=== PATIENT | male | born 2000 | race African-American/Black ===

== ENCOUNTER 2020-03-10 18:16 | Emergency (ER) | payer SELFPAY ==
[2020-03-10 21:28] VITALS: BP 133/56; PULSE 89; RESP 16; TEMP 36.9; O2SAT 98; BMI 27.1
[2020-03-10 21:52] VITALS: BP 123/71; PULSE 73; RESP 16; TEMP 36.7; O2SAT 99
[2020-03-10 22:02] LABS: MANUAL DIFF FLAG NO
[2020-03-10 22:06] LABS: Basophils Percent Auto 0.5 % (0-2); Eosinophils Absolute Auto 0.1 X10*3/uL (0.0-0.4); Eosinophils Percent Auto 0.8 % (0-4); Hematocrit 44.4 % (42-52); Hemoglobin 14.6 g/dl (14.0-18.0); Imm Gran Abs Auto 0.02 X10*3/uL (0.00-0.03); Imm Gran Pct Auto 0.3 % (0.0-0.4); Lymphocytes Absolute Auto 2.3 X10*3/uL (1.2-4.9); Lymphocytes Percent Auto 29.4 % (20-40); Mean Corpuscular HGB Conc 32.9 g/dl (31.0-36.0); Mean Corpuscular Hemoglobin 29.2 pg (27.0-33.0); Mean Corpuscular Volume 88.8 fL (80-98); Mean Platelet Volume 11.8 fL (9.4-12.4); Monocytes Absolute Auto 0.8 X10*3/uL (0.1-1.2); Monocytes Percent Auto 9.9 % (2-11); Neutrophils Absolute Auto 4.7 X10*3/uL (2.0-8.3); Neutrophils Percent Auto 59.1 % (45-73); Platelet Count 155 X10*3/uL (160-400); Red Cell Distribution Width 12.8 % (11.0-16.0); White Blood Count 7.9 X10*3/uL (4.8-10.8)
--- NOTE | 2020-03-10 22:07 | ED_ITS ---
HPI - Headache General Chief Complaint: Headache Stated Complaint: migraine Time Seen by Provider: 03/10/20 22:07 History of Present Illness HPI Narrative: Patient is a 20-year-old male with a history of migraine headaches in the past for presented today with having migraine headache. The pain is it over the entire head at 1st it was related to some photophobia. There is no fever no chills no cough no congestion or upper respiratory symptoms. There is no focal neurological deficit. Patient claims that while he is waiting in the waiting room for about 3 hours now the symptom has basically resolved. Patient denies having any headache at this time. There is no nausea no vomiting. Patient claims this is very typical for migraines Related Data Previous Rx's Medication Instructions Recorded ibuprofen 400 mg PO Q6H PRN #20 tab 03/10/20 Allergies Allergy/AdvReac Type Severity Reaction Status Date / Time No Known Allergies Allergy Verified 03/10/20 21:32 [No Known Allergies*] Review of Systems Review of Systems: Constitutional: No Weight loss, No Fever, No Chills, No Night Sweats, No Fatigue, No Malaise ENT/Mouth: No Hearing loss, No Ear Pain, No Nasal Congestion, No Sinus Pain, No Hoarseness, No sore throat, No Rhinorrhea, No Swallowing Difficulty Eyes: No Eye Pain, No Swelling, No Redness, No Foreign Body, No Discharge, No Vision Changes Cardiovascular: No Chest Pain, No SOB, No Dyspnea on Exertion, No Orthopnea, No Edema, No Palpitations Respiratory: No Cough, No Sputum, No Wheezing, No Smoke Exposure, No Dyspnea Gastrointestinal: No Nausea, No Vomiting, No Diarrhea, No Constipation, No abdominal Pain, No Hematochezia, No Melena Genitourinary: no irregular bleeding, No Dysuria, No Urinary Frequency, No Hematuria, No Urinary Incontinence, No Urgency, No Flank Pain, No Urinary Flow Changes, No Hesitancy Musculoskeletal: No joint pain, No Myalgias, No Joint Swelling Skin: No Skin Lesions, No rash Neuro: No Weakness, No Numbness, No Paresthesias, No Loss of Consciousness, No Dizziness, No Headache Psych: No Anxiety/Panic, No Depression, No SI/HI/AH/VH, No Social Issues, Heme/Lymph: No Bruising, No Bleeding,No Lymphadenopathy Endocrine: No Polyuria, No Polydipsia, No Temperature Intolerance PMFSH Past Medical History Attestation statement: The following information was validated with the patient. Medical History Migraine Social History Social History Advance Directives: No Physical Exam Vital Signs: Vital Signs: Vital Signs Temp Pulse Resp BP Pulse Ox 03/10/20 21:52 98.1 F 73 16 123/71 99 03/10/20 21:28 98.4 F 89 16 133/56 L 98 Body Mass Index 27.1 Appearance: Alert. Oriented X3. No acute distress. Eyes: Pupils equal, round and reactive to light. ENT: Pharynx normal. Neck: Normal inspection. Neck supple. No lymph nodes noted. No crepitus CVS: Normal heart rate and rhythm. Pulses normal. Normal S1 and S2 Respiratory: No respiratory distress. Breath sounds normal. No Wheezing. No rales Abdomen: Soft and nontender. No rigidity. No distention. good BS x4 Skin: Skin warm and dry. Normal skin color. Normal skin turgor. Extremities: No lower extremity edema. Neurovascular intact to all extremities. No Lacerations. No Rash Neuro: Oriented X 3. No motor deficit. No sensory deficit. Moving all extermities. No slurred speech MDM - Headache MDM Narrative Medical decision making narrative: Patient has a history of migraine headache. While waiting patient's symptom has already resolved. It currently in no distress. Ambulated well in the emergency department. Neuro intact. Will discharge patient home close follow-up on an outpatient basis. Differential Diagnosis Differential diagnosis: Likely migraine, tension headache, subarachnoid hemorrhage and headache Medical Records Attestation: I reviewed the patient's medical records. Lab Data Attestation: I reviewed the patient's lab results. Result diagrams: 03/10/20 21:56 03/10/20 21:56 Labs: Lab Results 03/10/20 Range/Units 21:56 WBC 7.9 (4.8-10.8) X10*3/uL RBC 5.00 (4.60-5.80) X10*6/uL Hgb 14.6 (14.0-18.0) g/dl Hct 44.4 (42-52) % MCV 88.8 (80-98) fL MCH 29.2 (27.0-33.0) pg MCHC 32.9 (31.0-36.0) g/dl RDW 12.8 (11.0-16.0) % Plt Count 155 L (160-400) X10*3/uL MPV 11.8 (9.4-12.4) fL Immature Gran % (Auto) 0.3 (0.0-0.4) % Neut % (Auto) 59.1 (45-73) % Lymph % (Auto) 29.4 (20-40) % Forrest % (Auto) 9.9 (2-11) % Eos % (Auto) 0.8 (0-4) % Baso % (Auto) 0.5 (0-2) % Lymph # (Auto) 2.3 (1.2-4.9) X10*3/uL Forrest # (Auto) 0.8 (0.1-1.2) X10*3/uL Eos # (Auto) 0.1 (0.0-0.4) X10*3/uL Baso # (Auto) 0.0 (0.0-0.2) X10*3/uL Abs Immat Gran (auto) 0.02 (0.00-0.03) X10*3/uL Absolute Neuts (auto) 4.7 (2.0-8.3) X10*3/uL Absolute Nucleated RBC 0.000 (0.0-0.012) X10*3/uL Nucleated RBC % (auto) 0.0 (0.0-0.2) /100WBC Discharge Plan Discharge Clinical Impression: Migraine Patient Disposition: Home, Self-Care Instructions: Migraine Headache (ED) Prescriptions: New ibuprofen 400 mg tablet 400 mg PO Q6H PRN (Reason: pain) Qty: 20 RF: 0 Referrals: Physician,Unknown [Primary Care Provider] - 2 days Stand Alone Forms: Work/School Release
[2020-03-10 22:31] LABS: Anion Gap 11 (12-20); Blood Urea Nitrogen 8 mg/dL (9-16); Calcium 8.8 mg/dL (8.4-10.2); Carbon Dioxide 29 mmol/L (22-29); Chloride 103 mmol/L (96-108); Creatinine Clr Calc Pharmacy 120.9; Estimated Glomerular Filt Rate > 60; Glucose Random 105 mg/dL (60-115); Potassium 3.7 mmol/l (3.3-5.1); Sodium 139 mmol/L (135-145)
== END 2020-03-10 22:31 | disposition home or self-care (01) ==
PROVIDERS: Emergency Provider Emergency Medicine Emergency Medical Services
DX: G43.909 Migraine, unspecified, not intractable, without status migrainosus (principal)
CPT/HCPCS: 36415; 80048; 85025; 99283

== ENCOUNTER 2020-04-15 15:59 | Outpatient (REF) | payer OTHER, SELFPAY | END 2020-04-15 16:00 | disposition home or self-care (01) | LOC: HO.LAB 15:59 | PROVIDERS: Visit Provider Internal Medicine | DX: Z20.828 Contact with and (suspected) exposure to other viral communicable diseases (principal) | CPT/HCPCS: C9803; U0003 ==

== ENCOUNTER 2020-04-15 16:23 | Emergency (ER) | payer OTHER, SELFPAY ==
[2020-04-15 16:48] VITALS: BP 141/76; PULSE 69; RESP 16; TEMP 36.7; O2SAT 99; BMI 27.1
--- NOTE | 2020-04-15 18:23 | ED_ITS ---
HPI - General Adult General Chief complaint: General Medical Stated complaint: STD check Time Seen by Provider: 04/15/20 18:21 Source: patient Mode of arrival: ambulatory Limitations: no limitations History of Present Illness HPI narrative: States he had intercourse with a new partner unprotected last week today he noticed slight discharge from his penis that was ?creamy? and presents seeking testing for STI. States similar history in the past with chlamydia Denies any rash or lesions. No dysuria. No fever chills. No testicular pain. No penile pain. Relieving factors: none Exacerbating factors: none Associated symptoms: denies other symptoms Treatments prior to arrival: none Related Data Previous Rx's Medication Instructions Recorded ibuprofen 400 mg PO Q6H PRN #20 tab 03/10/20 Allergies Allergy/AdvReac Type Severity Reaction Status Date / Time No Known Allergies Allergy Verified 03/10/20 21:32 [No Known Allergies*] Review of Systems Review of Systems: Constitutional: No Weight loss, No Fever, No Chills, No Night Sweats, No Fatigue, No Malaise ENT/Mouth: No Hearing loss, No Ear Pain, No Nasal Congestion, No Sinus Pain, No Hoarseness, No sore throat, No Rhinorrhea, No Swallowing Difficulty Eyes: No Eye Pain, No Swelling, No Redness, No Foreign Body, No Discharge, No Vision Changes Cardiovascular: No Chest Pain, No SOB, No Dyspnea on Exertion, No Orthopnea, No Edema, No Palpitations Respiratory: No Cough, No Sputum, No Wheezing No Dyspnea Gastrointestinal: No Nausea, No Vomiting, No Diarrhea, No Constipation, No abdominal Pain, No Hematochezia, No Melena Genitourinary: No Dysuria, No Urinary Frequency, No Hematuria, No Urinary Incontinence, No Urgency, No Flank Pain, No Urinary Flow Changes, No Hesitancy Musculoskeletal: No joint pain, No Myalgias, No Joint Swelling Skin: No Skin Lesions, No rash Neuro: No Weakness Psych: No Social Issues Heme/Lymph: No Bruising, No Bleeding,No Lymphadenopathy Endocrine: No Polyuria, No Polydipsia, No Temperature Intolerance Yes all other systems are reviewed and are negative [facility] Past Medical History Medical History Migraine Social History Social History Advance Directives: No Advance Directives Information Provided: No Physical Exam Vital Signs: Vital Signs: Last Vital Signs Temp 98.1 F 04/15/20 16:48 Pulse 69 04/15/20 16:48 Resp 16 04/15/20 16:48 BP 141/76 H 04/15/20 16:48 Pulse Ox 99 04/15/20 16:48 Body Mass Index 27.1 Reviewed Const: General: cooperative and healthy appearing; No acute distress or intoxicated appearing Nutritional Appearance: average body habitus Orientation/consciousness: patient oriented x3 HENMT: Head: Yes normal to inspection Ears: hearing grossly normal bilaterally Eyes: General: appearance normal, both eyes and all related structures Visual Justin: normal visual justin by confrontation Chest: Chest palpation & inspection: normal inspection of the chest Resp: Effort & Inspection: normal respiratory effort : General: Yes no CVA tenderness Male General Exam: Yes normal external exam Penis: uncircumcised Meatus: meatus normal Scrotum: scrotum normal Testes: Testes normal and testicular lie normal Back/Spine/Pelvis: Back: no CVA tenderness Skin: General skin exam: no rashes or lesions noted Neuro: General: patient oriented x3 Extrem: General: Yes normal to inspection Course Course Course Narrative: Examined directly after he provided specimen for CT /NG /UA. No significant findings on exam. Will go ahead and empirically treat for CT/NG Will advise for close follow-up at [facility] for full panel testing. Empirically treated with ceftriaxone/azithromycin Discharge Plan Discharge Clinical Impression: Urethritis Patient Disposition: Home, Self-Care Instructions: Nonspecific Urethritis in Men (ED) Additional Instructions: Today you were evaluated for your penile discharge This is likely from an STD Today you were tested and treated for 2 common STDs (chlamydia/ gonorrhea) Please go to the [facility] for full panel STD testing at [facility] Please abstain from any further sexual activity until your symptoms have resolved and you have been medically cleared Return if any concerns or worse symptoms Thank you Prescriptions: No Action ibuprofen 400 mg tablet 400 mg PO Q6H PRN (Reason: pain) Qty: 20 RF: 0 Referrals: ED Physician,Generic [Emergency Provider] - 1 day ([facility] )
[2020-04-15 18:34] LABS: Glucose Urine UA NEG (NEG); Leukocyte Esterase Urine NEG (NEG); Nitrite Urine NEG (NEG); Specific Gravity - Urine 1.025 (1.005-1.025); Urine Blood NEG (NEG); Urine Ketones NEG (NEG); Urine Protein NEG (NEG-TRACE)
[2020-04-15 18:40] LABS: Appearance Urine CLEAR; Color Urine YELLOW
[2020-04-15] MEDS: Azithromycin 500 MG TABLET 1000 MG PO (18:44)
[2020-04-15] MEDS: cefTRIAXone sodium 250 MG, Lidocaine HCl 1 % MPF 0.9 ML IM (18:44)
[2020-04-15 18:48] LABS: RBC Urine 0 /HPF (0); Squamous Epithelial Cell Urine TRACE /LPF; UACC CULT YES; WBC Urine 0-2 /HPF (0-4)
[2020-04-21 18:10] LABS: CT PCR DETECTED (Not Detect.); NG PCR NOT DETECTED (Not Detect.)
== END 2020-04-15 19:24 | disposition home or self-care (01) ==
PROVIDERS: Emergency Provider Emergency Medicine Emergency Medical Services
DX: N34.2 Other urethritis (principal); Z20.2 Contact with and (suspected) exposure to infections with a predominantly sexual mode of transmission
CPT/HCPCS: 81001; 87491; 87591; 96372; 99283; 99284; J0696

== ENCOUNTER 2020-04-19 09:36 | Emergency (ER) | payer OTHER, SELFPAY ==
[2020-04-19 09:45] VITALS: BP 140/72; PULSE 84; RESP 16; TEMP 36.4; O2SAT 96; BMI 27.1
--- NOTE | 2020-04-19 10:10 | ED_ITS ---
HPI - Male Genitourinary General Chief complaint: Urogenital-Male Stated complaint: STD Time Seen by Provider: 04/19/20 10:10 History of Present Illness HPI Narrative: patient complains of penile discharge for 1 day, no dysuria, no testicular pain or swelling no fever, denies any sores Related Data Previous Rx's Medication Instructions Recorded ibuprofen 400 mg PO Q6H PRN #20 tab 03/10/20 Allergies Allergy/AdvReac Type Severity Reaction Status Date / Time No Known Allergies Allergy Verified 03/10/20 21:32 [No Known Allergies*] Review of Systems Review of Systems: positive for penile discharge negative no fever no chills no weakness no dizziness no dysuria no frequency no abdominal pain no back pain no rash no sores Yes all other systems are reviewed and are negative [facility] Past Medical History Attestation statement: The following information was validated with the patient. [facility] Narrative: no relevant medical history, he has had unprotected sexual intercourse Medical History Migraine Social History Social History Advance Directives: No Advance Directives Information Provided: No Physical Exam Vital Signs: Vital Signs: Last Vital Signs Temp 97.5 F 04/19/20 09:45 Pulse 84 04/19/20 09:45 Resp 16 04/19/20 09:45 BP 140/72 H 04/19/20 09:45 Pulse Ox 96 04/19/20 09:45 Body Mass Index 27.1 general appearance comfortable no distress cooperative exam neck is supple respiratory no respiratory distress abdomen is soft nontender, back no CVA tenderness, genital is normal with no discharge at this time no testicular swelling no lesions Extremities full range of motion x4 neuro no focal deficits Course Course Course Narrative: patient is treated with Rocephin and Zithromax for presumed STD Discharge Plan Discharge Clinical Impression: STD (male) Patient Disposition: Home, Self-Care Additional Instructions: you have either gonorrhea or chlamydia and we are testing for them and will call you with the results if positive This is very contagious so no sexual activity until your partners have been treated We recommend a follow-up test to confirm successive treatment so follow with her doctor or [facility] [phone] Prescriptions: No Action ibuprofen 400 mg tablet 400 mg PO Q6H PRN (Reason: pain) Qty: 20 RF: 0 Interventions: ED Discharge Assessment Last Done: 04/19/20 11:17 Discharge Date/Time: 04/19/20 11:18
[2020-04-19] MEDS: cefTRIAXone sodium 250 MG, Lidocaine HCl 1 % MPF 0.9 ML IM (11:12)
[2020-04-19] MEDS: Azithromycin 500 MG TABLET 1000 MG PO (11:12)
== END 2020-04-19 11:18 | disposition home or self-care (01) ==
PROVIDERS: Emergency Provider Emergency Medicine Emergency Medical Services
DX: Z20.2 Contact with and (suspected) exposure to infections with a predominantly sexual mode of transmission (principal); R36.9 Urethral discharge, unspecified
CPT/HCPCS: 96372; 99283; 99284; J0696

== ENCOUNTER 2020-06-03 19:22 | Emergency (ER) | payer OTHER, SELFPAY ==
[2020-06-03 21:17] VITALS: BP 142/71; PULSE 73; RESP 16; TEMP 36.6; O2SAT 98; BMI 27.1
--- NOTE | 2020-06-03 21:50 | ED.GENADULT ---
HPI - General Adult General Chief complaint: General Medical Stated complaint: fever Time Seen by Provider: 06/03/20 21:50 Source: patient Mode of arrival: ambulatory History of Present Illness HPI narrative: This is a 20-year-old male who presents for treatment of STI as his intimate partner was treated earlier today here in the emergency department. Otherwise, he denies having fever or chills or penile discomfort or discharge. Related Data Previous Rx's Medication Instructions Recorded ibuprofen 400 mg PO Q6H PRN #20 tab 03/10/20 Allergies Allergy/AdvReac Type Severity Reaction Status Date / Time No Known Allergies Allergy Verified 03/10/20 21:32 [No Known Allergies*] Review of Systems Review of Systems: Pertinent positives and negatives as stated in HPI 10 point review of systems is otherwise negative. PMFSH Past Medical History Source: nursing notes reviewed Medical History Migraine Social History Social History Advance Directives: No Advance Directives Information Provided: Yes Physical Exam Vital Signs: Vital Signs: Last Vital Signs Temp 98 F 06/03/20 21:17 Pulse 73 06/03/20 21:17 Resp 16 06/03/20 21:17 BP 142/71 H 06/03/20 21:17 Pulse Ox 98 06/03/20 21:17 Body Mass Index 27.1 VITAL SIGNS: Reviewed. GENERAL: Well developed, well nourished, in no acute distress. HEAD: Normocephalic/atraumatic, EYES: PERRLA, EOMI EARS: Ext canals without abnormality NOSE: Nares patent bilateral OROPHARYNX: no oral lesions noted, posterior pharynx clear NECK: Supple, no adenopathy LUNGS: Normal breath sounds. No adventitious sounds or accessory muscle use. SpO2<98> CARDIOVASCULAR: Regular rate and rhythm without noted murmurs NEUROLOGIC: Alert and oriented x 4. Course Course Course Narrative: This is a 20-year-old male with history and clinical presentation consistent with intimate partner exposure to STI. Will be empirically treated and urine will be collected for confirmation. Patient will then be discharged in stable condition. Discharge Plan Discharge Clinical Impression: STI (sexually transmitted infection) Patient Disposition: Home, Self-Care Instructions: Sexually Transmitted Diseases (ED) Additional Instructions: You have been empirically treated for STI exposure due to intimate partner treatment. Do not hesitate to return to the emergency department should you experience any penile pain, fevers, chills, shortness of breath, chest pain/ palpitations Prescriptions: No Action ibuprofen 400 mg tablet 400 mg PO Q6H PRN (Reason: pain) Qty: 20 RF: 0 Referrals: Physician,Unknown [Primary Care Provider] - 2 days
[2020-06-03] MEDS: cefTRIAXone sodium 500 MG, Lidocaine HCl 1 % MPF 1 ML IM (22:28)
[2020-06-03] MEDS: Azithromycin 500 MG TABLET 1000 MG PO (22:28)
[2020-06-03 22:36] LABS: Glucose Urine UA NEG (NEG); Leukocyte Esterase Urine NEG (NEG); Nitrite Urine NEG (NEG); Specific Gravity - Urine 1.025 (1.005-1.025); Urine Blood NEG (NEG); Urine Ketones NEG (NEG); Urine Protein NEG (NEG-TRACE)
[2020-06-03 22:37] LABS: Appearance Urine CLEAR; Color Urine YELLOW
[2020-06-06 00:48] LABS: C. trachomatis RNA TMA NOT DETECTED (NOT DETECTED); N. gonorrhoeae RNA TMA NOT DETECTED (NOT DETECTED)
== END 2020-06-03 22:34 | disposition home or self-care (01) ==
PROVIDERS: Emergency Provider Student in an Organized Health Care Education/Training Program
DX: Z11.3 Encounter for screening for infections with a predominantly sexual mode of transmission (principal)
CPT/HCPCS: 36415; 81003; 87491; 87591; 96372; 99283; 99284; J0696

== ENCOUNTER 2020-07-07 12:04 | Outpatient (REF) | payer OTHER, SELFPAY | END 2020-07-07 12:05 | disposition home or self-care (01) | LOC: HO.LAB 12:04 | PROVIDERS: Visit Provider Internal Medicine | DX: Z20.822 Contact with and (suspected) exposure to COVID-19 (principal) | CPT/HCPCS: 36415; C9803; U0003; U0005 ==

== ENCOUNTER 2021-04-24 07:48 | Emergency (ER) | payer OTHER, SELFPAY ==
--- NOTE | ~2021-04-24 | XR_ITS ---
EXAMINATION: XR CHEST CLINICAL INFORMATION: Cough and fever COMPARISON: None TECHNIQUE: Frontal view of the chest was obtained. FINDINGS: No significant abnormality is noted involving the heart, lungs, mediastinum, bony thorax or soft tissues. XR/XR chest 1V IMPRESSION: Unremarkable chest examination.
[2021-04-24 08:04] VITALS: BP 163/97; PULSE 99; RESP 20; TEMP 37.8; O2SAT 98; BMI 27.1
[2021-04-24 08:41] LABS: IDNOW Serial# 9DD0AD1C; Strep A Nucleic Acid Negative (Negative)
[2021-04-24 08:47] LABS: COVID-19 Test Negative (Negative)
[2021-04-24] MEDS: Amoxicillin/Potassium Clav 875 MG TABLET PO (08:56)
--- NOTE | 2021-04-24 09:05 | ED_ITS ---
HPI - URI/Sore Throat General Chief Complaint: Upper Respiratory Symptoms <KIM Ramos Last Filed: 04/24/21 09:49> Stated Complaint: FLU SYMPTONS <KIM Ramos Last Filed: 04/24/21 09:49> Time Seen by Provider: 04/24/21 08:08 <KIM Ramos Last Filed: 04/24/21 09:49> Source: patient <KIM Ramos Last Filed: 04/24/21 09:49> Mode of arrival: ambulatory <KIM Ramos Last Filed: 04/24/21 09:49> History of Present Illness HPI Narrative: 21-year-old male with a past medical history of migraines presenting to the ED complaining of subjective fever, chills, myalgias, headache, sore throat, right-sided ear pain times yesterday. Also reports productive forceful cough of phlegm with bloody streaks. Reports CP when coughing. Denies fever, chills, SOB, LE edema, recent travel, sick contacts <KIM Ramos Last Filed: 04/24/21 09:49> MD elicited complaint: fever, cough and nasal congestion <KIM Ramos Last Filed: 04/24/21 09:49> Onset (ago): day(s) <KIM Ramos Last Filed: 04/24/21 09:49> Related Data Home Medications: Previous Rx's Medication Instructions Recorded ibuprofen 400 mg tablet 400 mg PO Q6H PRN #20 tab 03/10/20 amoxicillin 875 mg-potassium 1 tab PO Q12H 7 Days #14 tab 04/24/21 clavulanate 125 mg tablet (Augmentin) fluticasone propionate 50 2 spray INTRANASAL DAILY #16 g 04/24/21 mcg/actuation nasal spray,suspension (Flonase Allergy Relief) <KIM Ramos Last Filed: 04/24/21 09:49> Allergies/Adverse Reactions: Allergies Allergy/AdvReac Type Severity Reaction Status Date / Time No Known Allergies Allergy Verified 03/10/20 21:32 [No Known Allergies*] <KIM Ramos Last Filed: 04/24/21 09:49> Review of Systems Review of Systems: Constitutional: + Fever, + Chills ENT/Mouth: + Ear Pain, + Nasal Congestion, No Sinus Pain, No Hoarseness, + sore throat, + Rhinorrhea, No Swallowing Difficulty Cardiovascular: No Chest Pain, No SOB Respiratory: +Cough, + Sputum, No Wheezing Gastrointestinal: No Nausea, No Vomiting, No Diarrhea, No Constipation, No Abdominal pain Genitourinary:No Hematuria, No Urgency, No Flank Pain Musculoskeletal: No joint pain, No Myalgias, No Joint Swelling Skin: No Skin Lesions, No rash Neuro: No Weakness, No Numbness <KIM Ramos - Last Filed: 04/24/21 09:49> Yes all other systems are reviewed and are negative <KIM Ramos - Last Filed: 04/24/21 09:49> [facility] Past Medical History Attestation statement: The following information was validated with the patient. <KIM Ramos - Last Filed: 04/24/21 09:49> Medical History: Medical History Migraine <KIM Ramos - Last Filed: 04/24/21 09:49> Social History Social History: Social History Advance Directives: No Advance Directives Information Provided: No <KIM Ramos - Last Filed: 04/24/21 09:49> Physical Exam Vital Signs: Vital Signs: Last Vital Signs Temp 100.0 F 04/24/21 08:04 Pulse 99 04/24/21 08:04 Resp 20 04/24/21 08:04 BP 163/97 H 04/24/21 08:04 Pulse Ox 98 04/24/21 08:04 BMI result Body Mass Index 27.1 <KIM Ramos - Last Filed: 04/24/21 09:49> Vital Signs: Last Vital Signs Temp 100.0 F 04/24/21 08:04 Pulse 99 04/24/21 08:04 Resp 20 04/24/21 08:04 BP 163/97 H 04/24/21 08:04 Pulse Ox 98 04/24/21 08:04 BMI result Body Mass Index 27.1 <Lv Craig MD - Last Filed: 05/14/21 06:55> Const: General: cooperative, healthy appearing and no acute distress <KIM Ramos - Last Filed: 04/24/21 09:49> Orientation/consciousness: patient oriented x3 <KIM Ramos - Last Filed: 04/24/21 09:49> Limitations: no limitations <KIM Ramos Last Filed: 04/24/21 09:49> HENMT: Head: Yes normal to inspection <KIM Ramos - Last Filed: 04/24/21 09:49> Ears: hearing grossly normal bilaterally, external ears normal, TM's normal bilaterally and mastoids normal <KIM Ramos - Last Filed: 04/24/21 09:49> General nose exam: Normal external nose present <KIM Ramos - Last Filed: 04/24/21 09:49> Face and sinus: Yes normal facial exam <KIM Ramos - Last Filed: 04/24/21 09:49> Mouth: Normal oral and palatal mucosa present and no drooling <KIM Ramos - Last Filed: 04/24/21 09:49> Throat: Yes uvula midline, Yes abnormal tonsil (+bilateral tonsillar swelling & erythema w/ right-sided tonsillar exudates), No peritonsillar mass, No uvula laterally displaced and No uvular edema <KIM Ramos - Last Filed: 04/24/21 09:49> Eyes: General: appearance normal, both eyes and all related structures <KIM Ramos - Last Filed: 04/24/21 09:49> EOM: EOMs intact bilaterally <KIM Ramos - Last Filed: 04/24/21 09:49> Neck: Other: + right-sided lymphadenopathy <KIM Ramos - Last Filed: 04/24/21 09:49> Neck: Yes normal visual inspection and Yes supple <KIM Ramos - Last Filed: 04/24/21 09:49> Resp: Effort & Inspection: normal respiratory effort and no stridor <KIM Ramos - Last Filed: 04/24/21 09:49> Auscultation: clear to auscultation bilaterally, no rales, no rhonchi and no wheezes <Emelia Henley PA - Last Filed: 04/24/21 09:49> Cardio: Rate: regular rate <KIM Ramos - Last Filed: 04/24/21 09:49> Heart sounds: S1 normal heart sound present and S2 normal heart sound present <Emelia Henley PA - Last Filed: 04/24/21 09:49> GI: Inspection: Yes normal to inspection <Emelia Henley PA - Last Filed: 04/24/21 09:49> Palpation (GI): Soft to palpation, nontender, no guarding and not rigid <Emelia Henley PA - Last Filed: 04/24/21 09:49> Skin: Rashes: no rashes <Emelia Henley PA - Last Filed: 04/24/21 09:49> Wounds: no wounds <Emelia Henley PA - Last Filed: 04/24/21 09:49> Neuro: General: patient oriented x3 <KIM Ramos - Last Filed: 04/24/21 09:49> Gait exam (Neuro): Normal gait present <Emelia Henley PA - Last Filed: 04/24/21 09:49> Extrem: General: Yes normal to inspection <KIM Ramos - Last Filed: 04/24/21 09:49> Course Course Course Narrative: -911--COVID-19 and rapid strep negative XR chest 1V IMPRESSION: Unremarkable chest examination. ? <KIM Ramos - Last Filed: 04/24/21 09:49> MDM - URI/Sore Throat MDM Narrative Medical decision making narrative: 21-year-old male with a past medical history of migraines presenting to the ED complaining of subjective fever, chills, myalgias, headache, sore throat, right-sided ear pain times yesterday. Also reports productive forceful cough of phlegm with bloody streaks. On exam low-grade temp of 100?, NAD/nontoxic, oropharynx consistent with early strep pharyngitis, lungs CTA, TMs WNL. Concern for strep pharyngitis vs viral syndrome/COVID-19 vs bronchitis. Rule out pneumonia. Low concern for PE/ACS Plan: COVID-19 testing, rapid strep, CXR <KIM Ramos - Last Filed: 04/24/21 09:49> Medical Records Attestation: I reviewed the patient's medical records. <IKM Ramos - Last Filed: 04/24/21 09:49> Lab Data Attestation: I reviewed the patient's lab results. <KIM Ramos - Last Filed: 04/24/21 09:49> Labs: Lab Results 04/24/21 04/24/21 Range/Units 08:17 08:19 COVID-19 (MIKE) Negative (Negative) COVID-19 Clin Com See Note S. pyogenes GrpA POONAM Negative (Negative) <KIM Ramos - Last Filed: 04/24/21 09:49> Lab Results 04/24/21 04/24/21 Range/Units 08:17 08:19 COVID-19 (MIKE) Negative (Negative) COVID-19 Clin Com See Note S. pyogenes GrpA POONAM Negative (Negative) <Lv Craig MD - Last Filed: 05/14/21 06:55> Discharge Plan Discharge Clinical Impression: Pharyngitis <KIM Ramos - Last Filed: 04/24/21 09:49> Patient Disposition: Home, Self-Care <KIM Ramos - Last Filed: 04/24/21 09:49> Instructions: Pharyngitis (ED) <KIM Ramos - Last Filed: 04/24/21 09:49> Additional Instructions: You tested negative for strep throat and COVID-19 Your chest x-ray is unremarkable Augmentin is an antibiotic please take as prescribed Flonase is a nasal decongestion Please take Tylenol and Motrin at home for fever and swelling and body aches If her symptoms persist or worsen, you are unable to eat or drink, develops fevers unresolved with medications, constant worsening symptoms, shortness of breath or chest pain please return to the ED <KIM Ramos - Last Filed: 04/24/21 09:49> Prescriptions: New fluticasone propionate [Flonase Allergy Relief] 50 mcg/actuation spray,suspension 2 spray intranasal DAILY Qty: 16 RF: 0 amoxicillin-pot clavulanate [Augmentin] 875-125 mg tablet 1 tab PO Q12H 7 Days Qty: 14 RF: 0 No Action ibuprofen 400 mg tablet 400 mg PO Q6H PRN (Reason: pain) Qty: 20 RF: 0 <KIM Ramos - Last Filed: 04/24/21 09:49> Referrals: Physician,Unknown J [Primary Care Provider] - 2 days <KIM Ramos - Last Filed: 04/24/21 09:49> Stand Alone Forms: Work/School Release <KIM Ramos - Last Filed: 04/24/21 09:49> Interventions: ED Discharge Assessment Last Done: 04/24/21 09:58 <KIM Ramos - Last Filed: 04/24/21 09:49> Discharge Date/Time: 04/24/21 09:59 <KIM Ramos - Last Filed: 04/24/21 09:49>
== END 2021-04-24 09:59 | disposition home or self-care (01) ==
PROVIDERS: Physician Assistant; Emergency Provider Emergency Medicine
DX: J02.9 Acute pharyngitis, unspecified (principal); M79.10 Myalgia, unspecified site; R50.9 Fever, unspecified; R51.9 Headache, unspecified; R05.9 Cough, unspecified; Z20.822 Contact with and (suspected) exposure to COVID-19; Z79.899 Other long term (current) drug therapy
CPT/HCPCS: 36415; 71045; 87635; 87651; 99283

== ENCOUNTER 2022-12-09 13:27 | Emergency (ER) | payer OTHER, SELFPAY ==
[2022-12-09 13:33] VITALS: BP 156/100; PULSE 102; RESP 20; TEMP 36.6; O2SAT 99
--- NOTE | 2022-12-09 13:34 | ED.GENADULT ---
HPI - General Adult General Chief complaint: Abdominal Pain Stated complaint: abd pain Time Seen by Provider: 12/09/22 17:33 Source: patient Mode of arrival: ambulatory Limitations: no limitations History of Present Illness HPI narrative: Patient is a 22-year-old male presents emergency department for evaluation of lower abdominal pain, diffuse, nausea without vomiting, single episode of diarrhea yesterday. Denies any bloody or dark stools. Reports his nephew recently tested positive for COVID-19. He is without any upper respiratory symptoms. Endorses urinary frequency with penile discharge, yellow in color. Denies any testicular pain or swelling. Denies any genital lesions or sores. Expresses concern for sexually transmitted infection. Related Data Previous Rx's Medication Instructions Recorded ibuprofen 400 mg tablet 400 mg PO Q6H PRN pain #20 tabs 03/10/20 amoxicillin 875 mg-potassium 1 tab PO Q12H 7 days #14 tabs 04/24/21 clavulanate 125 mg tablet (Augmentin) fluticasone propionate 50 2 spray intranasal DAILY #16 grams 04/24/21 mcg/actuation nasal spray,suspension (Flonase Allergy Relief) doxycycline hyclate 100 mg capsule 100 mg PO BID #13 caps 12/09/22 Allergies Allergy/AdvReac Type Severity Reaction Status Date / Time No Known Allergies Allergy Verified 03/10/20 21:32 [No Known Allergies*] Review of Systems Review of Systems: Constitutional : No Weight loss, No Fever, No Chills ENT/Mouth :? No sore throat, No Rhinorrhea Eyes: No Swelling, No Redness Cardiovascular : No Chest Pain, No SOB, No Edema Respiratory : No Cough, No Sputum, No Wheezing Gastrointestinal : Positive Nausea, no Vomiting, positive Diarrhea, positive abdominal pain, No Hematochezia, No Melena Genitourinary : No Dysuria, positive Urinary Frequency, No Hematuria, No Urgency, positive penile discharge? Musculoskeletal : No joint pain, No Myalgias, No Joint Swelling Skin : No Skin Lesions, No rash Neuro : No Weakness, No Numbness, No Dizziness, No Headache Psych : No Anxiety/Panic, No Depression Heme/Lymph: No Bruising, No Lymphadenopathy Yes all other systems are reviewed and are negative [facility] Past Medical History Attestation statement: The following information was validated with the patient. Source: old records reviewed Medical History Migraine Social History Social History Alcohol intake: current Alcohol intake frequency: a few times a week Alcohol type: hard liquor Smoked in Last 30 Days: Yes Use of substances other than those prescribed or required for medical reasons: No Advance Directives: No Advance Directives Information Provided: No Physical Exam ED Vital Signs: Vital Signs - 24 hr 12/09/22 13:33 12/09/22 17:35 Temperature 97.8 F 98.1 F Pulse Rate 102 H 74 Respiratory Rate 20 16 Blood Pressure 156/100 H 135/83 Pulse Oximetry 99 97 Oxygen Delivery Method Room Air Room Air BMI result Body Mass Index 30.0 Appearance: Alert.?Oriented to person, place and time. No acute distress.?Normal affect. Eyes: Pupils equal, round and reactive to light.? ENT: Pharynx normal.?? Neck: Normal inspection.? Neck supple.?? CVS: Heart sounds normal. Normal heart rate and rhythm.? Pulses normal.?? Respiratory: No respiratory distress.? Lung sounds clear to auscultation bilaterally?? Abdomen: Soft and non-tender. Normoactive bowel sounds. Genitourinary: Declined genitourinary examination Skin: Skin warm and dry.? Normal skin color.? Extremities: No lower extremity edema.? Neuro: Moves all extremities spontaneously. Sensation intact bilaterally. No focal neuro deficits. Ambulates with normal steady gait. Course Course Course Narrative: This is an RME: Additional HPI, ROS, PE not included below will be deferred to primary provider. This 16-izyx-apd-male presenting to the emergency department with complaints of diffuse abdominal pain, diarrhea endorsing nausea, denies vomiting. No history of abdominal surgeries. Reports nephew just tested positive for COVID. Patient also reports he is urinating more frequently and has noticed penile discharge since yesterday. He is concerned for sexually transmitted infections. Vital signs stable, patient is afebrile. Will defer imaging until seen by primary provider in the main emergency department Plan: Labs, UA, gonorrhea chlamydia testing Medications Administered Discontinued Medications Generic Name Dose Route Start Last Admin Trade Name Freq PRN Reason Stop Dose Admin Ceftriaxone Sodium 500 mg/ 0 mg 12/09/22 18:11 12/09/22 18:24 Lidocaine HCl 1 ml IM 12/09/22 18:12 1 kit ONCE ONE Administration Doxycycline Monohydrate 100 mg 12/09/22 18:11 12/09/22 18:24 Doxycycline Monohydrate 100 Mg Capsule PO 12/09/22 18:12 100 mg ONCE ONE Administration Medical Decision Making Medical Decision Making [facility] Narrative: Patient is a 22-year-old male presents emergency department for evaluation of abdominal pain and penile discharge as per HPI. At the time my examination he is overall well-appearing, nontoxic, afebrile. Abdominal examination is benign, low suspicion for appendicitis/diverticulitis/bowel obstruction, would defer CT imaging at this time. He declines a genitourinary examination, and declines any scrotal pain or swelling, unlikely testicular torsion. Urinalysis does not reveal evidence of infection, however his chlamydia testing is positive. Patient received ceftriaxone in the emergency department in wound 1st dose of doxycycline, prescription for remainder of doxycycline was sent to pharmacy. Discussed safe sex practices, advising recent sexual partners to obtain testing/treatment. Patient verbalizes understanding. At this time he was discharged, reviewed worrisome signs and symptoms that would warrant re-evaluation. All questions answered. Stable for discharge. Differential Diagnosis Differential Diagnoses: The differential diagnosis associated with the presentation includes (As noted above) Lab Data [facility] Lab Attestation statement: I reviewed the patient's lab results. (No leukocytosis, overall unremarkable CMP, lipase is within normal limits.) 12/09/22 13:48 12/09/22 13:48 Labs: Lab Results 12/09/22 12/09/22 12/09/22 Range/Units 13:48 13:48 13:48 WBC 9.3 (4.8-10.8) X10*3/uL RBC 5.19 (4.60-5.80) X10*6/uL Hgb 14.5 (14.0-18.0) g/dl Hct 42.8 (42.0-52.0) % MCV 82.5 (80.0-98.0) fL MCH 27.9 (27.0-33.0) pg MCHC 33.9 (31.0-36.0) g/dl RDW 13.3 (11.0-16.0) % Plt Count 171 (160-400) X10*3/uL MPV 12.1 (9.4-12.4) fL Immature Gran % (Auto) 0.2 (0.0-0.4) % Neut % (Auto) 70.9 (45-73) % Lymph % (Auto) 22.9 (20-40) % [place] % (Auto) 5.4 (2-11) % Eos % (Auto) 0.3 (0-4) % Baso % (Auto) 0.3 (0-2) % Lymph # (Auto) 2.1 (1.2-4.9) X10*3/uL [place] # (Auto) 0.5 (0.1-1.2) X10*3/uL Eos # (Auto) 0.0 (0.0-0.4) X10*3/uL Baso # (Auto) 0.0 (0.0-0.2) X10*3/uL Abs Immat Gran (auto) 0.02 (0.00-0.03) X10*3/uL Absolute Neuts (auto) 6.6 (2.0-8.3) x10*3/uL Absolute Nucleated RBC 0.000 (0.0-0.012) X10*3/uL Nucleated RBC % (auto) 0.0 (0.0-0.2) /100WBC Sodium 139 (135-145) mmol/L Potassium 3.6 (3.3-5.1) mmol/L Chloride 105 (96-108) mmol/L Carbon Dioxide 22 (22-29) mmol/L Anion Gap 16 (12-20) BUN 10 (9-16) mg/dL Creatinine 0.95 (0.5-1.4) mg/dL Estim Creat Clear Calc 144.0 Estimated GFR > 60 Random Glucose 123 H (60-115) mg/dL Calcium 10.2 D (8.4-10.2) mg/dL Magnesium 1.8 (1.6-2.6) mg/dL Total Bilirubin 0.5 (0.0-1.0) mg/dL Direct Bilirubin 0.2 (0.0-0.5) mg/dL AST 19 (5-37) U/L ALT 27 (0-40) U/L Alkaline Phosphatase 118 H (39-117) U/L Total Protein 8.0 (6.5-8.0) g/dL Albumin 4.4 (3.5-5.0) g/dL Lipase 11 (8-78) U/L Urine Color Urine Appearance Urine pH (5.0-9.0) Ur Specific [place] (1.005-1.025) Urine Protein (Neg-Trace) mg/dL Urine Glucose (UA) (Negative) mg/dL Urine Ketones (Negative) mg/dL Urine Blood (Negative) Urine Nitrite (Negative) Ur Leukocyte Esterase (Negative) Urine RBC (0-2) /HPF Urine WBC (0-5) /HPF Ur Squamous Epith Cells (0-2) /HPF Urine Bacteria (None Seen) Hyaline Casts (0-2) /LPF Chlam trachomat DNA PCR (Not Detect.) COVID-19 (MIKE) Negative (Negative) COVID-19 Clin Com See Note N.gonorrhoeae DNA (PCR) (Not Detect.) 12/09/22 12/09/22 Range/Units 13:51 13:51 WBC (4.8-10.8) X10*3/uL RBC (4.60-5.80) X10*6/uL Hgb (14.0-18.0) g/dl Hct (42.0-52.0) % MCV (80.0-98.0) fL MCH (27.0-33.0) pg MCHC (31.0-36.0) g/dl RDW (11.0-16.0) % Plt Count (160-400) X10*3/uL MPV (9.4-12.4) fL Immature Gran % (Auto) (0.0-0.4) % Neut % (Auto) (45-73) % Lymph % (Auto) (20-40) % [place] % (Auto) (2-11) % Eos % (Auto) (0-4) % Baso % (Auto) (0-2) % Lymph # (Auto) (1.2-4.9) X10*3/uL [place] # (Auto) (0.1-1.2) X10*3/uL Eos # (Auto) (0.0-0.4) X10*3/uL Baso # (Auto) (0.0-0.2) X10*3/uL Abs Immat Gran (auto) (0.00-0.03) X10*3/uL Absolute Neuts (auto) (2.0-8.3) x10*3/uL Absolute Nucleated RBC (0.0-0.012) X10*3/uL Nucleated RBC % (auto) (0.0-0.2) /100WBC Sodium (135-145) mmol/L Potassium (3.3-5.1) mmol/L Chloride (96-108) mmol/L Carbon Dioxide (22-29) mmol/L Anion Gap (12-20) BUN (9-16) mg/dL Creatinine (0.5-1.4) mg/dL Estim Creat Clear Calc Estimated GFR Random Glucose (60-115) mg/dL Calcium (8.4-10.2) mg/dL Magnesium (1.6-2.6) mg/dL Total Bilirubin (0.0-1.0) mg/dL Direct Bilirubin (0.0-0.5) mg/dL AST (5-37) U/L ALT (0-40) U/L Alkaline Phosphatase (39-117) U/L Total Protein (6.5-8.0) g/dL Albumin (3.5-5.0) g/dL Lipase (8-78) U/L Urine Color Yellow Urine Appearance Clear Urine pH 6.0 (5.0-9.0) Ur Specific [place] 1.015 (1.005-1.025) Urine Protein Negative (Neg-Trace) mg/dL Urine Glucose (UA) Negative (Negative) mg/dL Urine Ketones Trace (Negative) mg/dL Urine Blood Negative (Negative) Urine Nitrite Negative (Negative) Ur Leukocyte Esterase Trace H (Negative) Urine RBC 0-2 (0-2) /HPF Urine WBC 0-5 (0-5) /HPF Ur Squamous Epith Cells 0-2 (0-2) /HPF Urine Bacteria None Seen (None Seen) Hyaline Casts 3-5 (0-2) /LPF Chlam trachomat DNA PCR DETECTED A (Not Detect.) COVID-19 (MIKE) (Negative) COVID-19 Clin Com N.gonorrhoeae DNA (PCR) NOT DETECTED (Not Detect.) Tests considered The following testing was considered but not selected: Considered CT of the abdomen and pelvis/scrotal ultrasound, see narrative above Prescription Management I considered prescription management with: Antibiotic (See narrative above) Discharge Plan Discharge Clinical Impression: Abdominal pain, Chlamydia infection Patient Disposition: Home, Self-Care Instructions: Safe Sex Practices (ED), Abdominal Pain (ED) Additional Instructions: As discussed your chlamydia testing today was positive. You received an injection in the emergency department with an antibiotic; ceftriaxone in addition to the 1st dose of doxycycline. I have sent a prescription to the pharmacy for the remainder of the doxycycline treatment, treatment courses 7 days please take the entire course as prescribed. As discussed, doxycycline makes you susceptible to sunburn, avoid prolonged time in the sun, or consider the use of sunblock if being in the sun is unavoidable. Refrain from sexual intercourse until completion of treatment. Advise any sexual partners within the past month that they should receive testing and/or treatment. Follow-up with a primary care provider within 3 days. Return back to emergency department any new or worsening symptoms or concerns. Prescriptions: New doxycycline hyclate 100 mg capsule 100 mg PO BID Qty: 13 0RF No Action ibuprofen 400 mg tablet 400 mg PO Q6H PRN (Reason: pain) Qty: 20 0RF fluticasone propionate [Flonase Allergy Relief] 50 mcg/actuation spray,suspension 2 spray intranasal DAILY Qty: 16 0RF Rx Instructions: administer into each nostril amoxicillin-pot clavulanate [Augmentin] 875-125 mg tablet 1 tab PO Q12H 7 Days Qty: 14 0RF Referrals: Physician,None [Primary Care Provider] - Stand Alone Forms: Work/School Release Interventions: ED Discharge Assessment Last Done: 12/09/22 18:28 Discharge Date/Time: 12/09/22 18:28
[2022-12-09 13:57] LABS: MANUAL DIFF FLAG NO
[2022-12-09 14:03] LABS: Appearance Urine Clear; Color Urine Yellow; Glucose Urine UA Negative (Negative); Leukocyte Esterase Urine Trace (Negative); Nitrite Urine Negative (Negative); Specific Gravity - Urine 1.015 (1.005-1.025); UMIC TRIGGER UACC YES; Urine Blood Negative (Negative); Urine Ketones Trace mg/dL (Negative); Urine Protein Negative (Neg-Trace)
[2022-12-09 14:06] LABS: Basophils Percent Auto 0.3 % (0-2); Eosinophils Percent Auto 0.3 % (0-4); Hematocrit 42.8 % (42.0-52.0); Hemoglobin 14.5 g/dl (14.0-18.0); Imm Gran Abs Auto 0.02 X10*3/uL (0.00-0.03); Imm Gran Pct Auto 0.2 % (0.0-0.4); Lymphocytes Absolute Auto 2.1 X10*3/uL (1.2-4.9); Lymphocytes Percent Auto 22.9 % (20-40); Mean Corpuscular HGB Conc 33.9 g/dl (31.0-36.0); Mean Corpuscular Hemoglobin 27.9 pg (27.0-33.0); Mean Corpuscular Volume 82.5 fL (80.0-98.0); Mean Platelet Volume 12.1 fL (9.4-12.4); Monocytes Absolute Auto 0.5 X10*3/uL (0.1-1.2); Monocytes Percent Auto 5.4 % (2-11); Neutrophils Absolute Auto 6.6 x10*3/uL (2.0-8.3); Neutrophils Percent Auto 70.9 % (45-73); Platelet Count 171 X10*3/uL (160-400); Red Blood Count 5.19 X10*6/uL (4.60-5.80); Red Cell Distribution Width 13.3 % (11.0-16.0); White Blood Count 9.3 X10*3/uL (4.8-10.8)
[2022-12-09 14:06] LABS: Bacteria Urine None Seen (None Seen); RBC Urine 0-2 /HPF (0-2); Squamous Epithelial Cell Urine 0-2 /HPF (0-2); WBC Urine 0-5 /HPF (0-5)
[2022-12-09 14:17] LABS: Alanine Aminotransferase 27 U/L (0-40); Albumin Level 4.4 g/dL (3.5-5.0); Alkaline Phosphatase 118 U/L (39-117); Anion Gap 16 (12-20); Aspartate Amino Transferase 19 U/L (5-37); Bilirubin Direct 0.2 mg/dL (0.0-0.5); Bilirubin Total 0.5 mg/dL (0.0-1.0); Blood Urea Nitrogen 10 mg/dL (9-16); Calcium 10.2 mg/dL (8.4-10.2); Carbon Dioxide 22 mmol/L (22-29); Chloride 105 mmol/L (96-108); Estimated Glomerular Filt Rate > 60; Glucose Random 123 mg/dL (60-115); Lipase 11 U/L (8-78); Magnesium 1.8 mg/dL (1.6-2.6); Potassium 3.6 mmol/L (3.3-5.1); Sodium 139 mmol/L (135-145)
[2022-12-09 14:27] LABS: COVID-19 Test Negative (Negative); IDNOW Serial# 08D9AD1C
[2022-12-09 17:35] VITALS: BP 135/83; PULSE 74; RESP 16; TEMP 36.7; O2SAT 97
--- NOTE | 2022-12-09 17:42 | PC.NURSE ---
pt a&ox4, resting quietly, VSS, pt stated pain 5/10 in lower abdomen, stated slight left side of the face swelling, hurts on palpation. wctm.
[2022-12-09 17:43] LABS: CT PCR DETECTED (Not Detect.); NG PCR NOT DETECTED (Not Detect.)
[2022-12-09] MEDS: cefTRIAXone sodium 500 MG, Lidocaine HCl 1 % MPF 1 ML IM (18:24)
[2022-12-09] MEDS: Doxycycline Monohydrate 100 MG CAPSULE PO (18:24)
== END 2022-12-09 18:28 | disposition home or self-care (01) ==
PROVIDERS: Physician Assistant Medical; Emergency Provider Internal Medicine
DX: A74.9 Chlamydial infection, unspecified (principal); R10.2 Pelvic and perineal pain; Z20.822 Contact with and (suspected) exposure to COVID-19; Z20.828 Contact with and (suspected) exposure to other viral communicable diseases; Z79.899 Other long term (current) drug therapy
CPT/HCPCS: 0353U; 36415; 80048; 80076; 81001; 81003; 83690; 83735; 85025; 87635; 96372; 99284; J0696

== ENCOUNTER 2024-09-23 20:04 | Emergency (ER) | payer OTHER, SELFPAY ==
--- NOTE | 2024-09-23 20:17 | ED_ITS ---
HPI - General Adult General Chief complaint: General Medical Stated complaint: fever like symptoms, possible allergic reaction Time Seen by Provider: 09/23/24 22:23 Source: patient Mode of arrival: ambulatory Limitations: no limitations History of Present Illness ED Provider: HPI narrative: Patient is feeling congested for last 1 week has a cat for last 2 weeks no history of allergies or asthma in the past feel very congested when he comes home Related Data Previous Rx's ?Medication ?Instructions ?Recorded ibuprofen 400 mg tablet 400 mg PO Q6H PRN pain #20 tabs 03/10/20 amoxicillin 875 mg-potassium 1 tab PO Q12H 7 days #14 tabs 04/24/21 clavulanate 125 mg tablet (Augmentin) fluticasone propionate 50 2 spray intranasal DAILY #16 grams 04/24/21 mcg/actuation nasal spray,suspension (Flonase Allergy Relief) doxycycline hyclate 100 mg capsule 100 mg PO BID #13 caps 12/09/22 fexofenadine 60 mg-pseudoephedrine 1 tab PO Q12H PRN nasal congestion 09/23/24 ER 120 mg tablet,ext.release,12 hr #20 tabs (Queenie-D 12 Hour) prednisone 20 mg tablet 40 mg (2 x 20 mg) PO DAILY #10 tabs 09/23/24 Allergies Allergy/AdvReac Type Severity Reaction Status Date / Time No Known Allergies Allergy Verified 09/23/24 20:22 [No Known Allergies*] Review of Systems Review of Systems: Yes all other systems are reviewed and are negative PMFSH Past Medical History Medical History Migraine Social History Social History Alcohol intake: current Alcohol intake frequency: a few times a week Alcohol type: hard liquor Advance Directives: No Advance Directives Information Provided: No Do you have a plan to hurt others: No Plan Physical Exam ED Vital Signs: Vital Signs - 24 hr 09/23/24 20:19 Temperature 97.9 F Pulse Rate 65 Respiratory Rate 16 Blood Pressure 130/82 Pulse Oximetry 97 Oxygen Delivery Method Room Air BMI result Body Mass Index 25.1 Appearance: Alert. Oriented X3. No acute distress. Eyes: no pallor or icterus ENT: Pharynx normal Oral Mucosa moist inflamed nasal turbinate with clear discharge Neck: Normal inspection. Neck supple. CVS: Normal heart rate and rhythm. Pulses normal. Respiratory: No respiratory distress. Equal air entry bilateral, no wheezing/rales/rhonchi Abd: soft, not tender Skin: Skin warm and dry. Normal skin color. Normal skin turgor. Extremities: No lower extremity edema, no calf tenderness Neuro: Oriented X 3. Course Course Course Narrative: RME performed by Silvia Tellez PA-C. Patient is a 24 year old assigned male at presenting to the emergency department with a sore throat, itchy eyes, and a running nose. Patient states that he has not been feeling well ever he since he got a new cat and he is concerned he is allergic to said cat. Detailed physical exam and review of systems are deferred to the primary school teacher librarian. Swabs ordered. Patient placed back in the waiting room pending room availability and results. Medical Decision Making Medical Decision Making MDM Narrative: Patient clinically with allergic rhinitis will give prednisone advised to stay away from cats Lab Data Labs: Lab Results 09/23/24 Range/Units 20:30 Influenza Type A (PCR) NEGATIVE (Negative) Influenza Type B (PCR) NEGATIVE (Negative) RSV RNA Qual (PCR) NEGATIVE (Negative) SARS-CoV-2 RNA (RT-PCR) NEGATIVE (Negative) S. pyogenes GrpA POONAM Negative (Negative) Discharge Plan Discharge Clinical Impression: Allergic rhinitis due to cats Patient Disposition: Home, Self-Care Instructions: Allergies (ED) Additional Instructions: Likely you have allergic reaction to cat Stay away from the cat Medication as prescribed Follow up with your PCP Prescriptions: New prednisone 20 mg tablet 40 mg PO DAILY Qty: 10 0RF fexofenadine-pseudoephedrine [Queenie-D 12 Hour] 60-120 mg tablet extended release 12 hr 1 tab PO Q12H PRN (Reason: nasal congestion) Qty: 20 0RF No Action ibuprofen 400 mg tablet 400 mg PO Q6H PRN (Reason: pain) Qty: 20 0RF fluticasone propionate [Flonase Allergy Relief] 50 mcg/actuation spray,suspension 2 spray intranasal DAILY Qty: 16 0RF Rx Instructions: administer into each nostril amoxicillin-pot clavulanate [Augmentin] 875-125 mg tablet 1 tab PO Q12H 7 Days Qty: 14 0RF doxycycline hyclate 100 mg capsule 100 mg PO BID Qty: 13 0RF Print Language: German
[2024-09-23 20:19] VITALS: BP 130/82; PULSE 65; RESP 16; TEMP 36.6; O2SAT 97; BMI 25.1
[2024-09-23 20:46] LABS: IDNOW Serial# 6674DD1D; Strep A Nucleic Acid Negative (Negative)
[2024-09-23 21:16] LABS: Influenza A PCR NEGATIVE (Negative); Influenza B PCR NEGATIVE (Negative); Resp Syncy Virus RNA Qual PCR NEGATIVE (Negative); SARS COV2 PCR INHOUSE NEGATIVE (Negative)
--- OUTSIDE RECORDS SUMMARY | 2024-09-23 21:55 | XMS_ITS | Clinical Summary ---
Author Organization [employer] Address [address] [place] [address] Care Team Providers Care Etched Circuit Processor Name Role Phone Unavailable Primary Care Provider Unavailabl e Encounters Date Type Department Care Team Description 08/27/2024 Telephone [facility] [address] [place] [address] Dane Allen MD New patient request from Last 3 Months Social History Tobacco Use Types Packs/Day Years Used Date Smoking Tobacco: Never Assessed Sex and Gender Information Value Date Recorded Sex Assigned at Not on file Legal Sex Male 4:41 PM EDT Gender Identity Not on file Sexual Orientation Not on file Plan of Treatment Health Maintenance Due Date Last Done Comments Depression Screening 1999 HIV Screening 1999 SDOH Screening 1999 Alcohol/Substance Use Screening 2011 Tobacco Screening 2011 Family Planning (PISQ) 2014 HPV Vaccines (1 - Male 3-dos e series) 2014 Hepatitis C Screening 2017 DTaP/Tdap/Td Vaccines (1 - Tdap) 2018 Hepatitis B Vaccines (1 of 3 - 19+ 3-dose series) 2018 COVID-19 Vaccine (1 - 2023-2 5 season) 2024 Influenza Vaccine (#1) 2024 Zoster Vaccines (1 of 2) 2049 RSV Patients and Pa tients Aged 60 years or older (1 - 1-dose 75+ series) 2074 HIB Vaccines Aged Out No longer eligi ble based on patient's age to complete this topic Hepatitis A Vaccines Aged Out No long er eligible based on patient's age to complete this topic IPV Vaccines Aged Out No longer eligi ble based on patient's age to complete this topic Meningococcal Vaccine Aged Out No juventino griffin eligible based on patient's age to complete this topic Pneumococcal Vaccine: Pediat rics (0 to 5 Years) and At-Risk Patients (6 to 49) Years) Aged Out No longer eligible b ased on patient's age to complete this topic RSV under 20 months Aged Out No longe r eligible based on patient's age to complete this topic Rotavirus Vaccines Aged Out No longer eligible based on patient's age to complete this topic Insurance [facility]
--- OUTSIDE RECORDS SUMMARY | 2024-09-23 21:55 | XMS_ITS | Clinical Summary ---
Author Organization [facility] Address [address] [place] [address] Care Team Providers Care Internet Cafe Manager Name Role Phone Unavailable Primary Care Provider Unavailabl e Social History Tobacco Use Types Packs/Day Years Used Date Smoking Tobacco: Never Assessed Sex and Gender Information Value Date Recorded Sex Assigned at Not on file Legal Sex Male 1:57 PM EST Gender Identity Not on file Sexual Orientation Not on file Plan of Treatment Health Maintenance Due Date Last Done Comments HPV Vaccines (1 - Male 3-dos e series) 2014 DTaP,Tdap,and Td Vaccines (1 - Tdap) 2018 Hepatitis B Vaccines (1 of 3 - 19+ 3-dose series) 2018 Depression Screening 04/14/2022 HIV Screening 04/14/2022 Hepatitis C Screening 04/14/2022 Social Influencers of Health Screening 04/14/2022 COVID-19 Vaccine (2023-2 5 season) 2024 Influenza Vaccine (Season Ended) 2025 HIB Vaccines Aged Out No longer eligi ble based on patient's age to complete this topic Hepatitis A Vaccines Aged Out No long er eligible based on patient's age to complete this topic IPV Vaccines Aged Out No longer eligi ble based on patient's age to complete this topic MMR Vaccines Aged Out No longer eligi ble based on patient's age to complete this topic Meningococcal ACWY Vaccine Aged Out N o longer eligible based on patient's age to complete this topic Meningococcal B Vaccine Aged Out No l onger eligible based on patient's age to complete this topic Pneumococcal Vaccine: Pediat rics (0 to 5 Years) and At-Risk Patients (6 to 64 Years) Aged Out No longer eligible b ased on patient's age to complete this topic RSV Immunization Patients Un eunice 20 months Aged Out No longer eligible b ased on patient's age to complete this topic Varicella Vaccines Aged Out No longer eligible based on patient's age to complete this topic
[2024-09-23 23:05] VITALS: BP 130/82; PULSE 72; RESP 16; TEMP 36.6; O2SAT 99
[2024-09-23] MEDS: predniSONE 20 MG TABLET 60 MG PO (23:05)
== END 2024-09-23 23:05 | disposition home or self-care (01) ==
PROVIDERS: Physician Assistant Medical; Emergency Provider Internal Medicine
DX: J30.9 Allergic rhinitis, unspecified (principal); R50.9 Fever, unspecified; R09.81 Nasal congestion; Z03.818 Encounter for observation for suspected exposure to other biological agents ruled out
CPT/HCPCS: 0241U; 87651; 99282; 99283